=== PATIENT | male | born 1945 | race Caucasian/White ===

== ENCOUNTER 2023-10-03 11:40 | Outpatient (CLI) | payer MEDICARE, BC, OTHER | END 2023-10-03 11:41 | disposition home or self-care (01) | LOC: CSHRAD 11:40 | PROVIDERS: ATTEND Neurological Surgery | DX: Z01.818 Encounter for other preprocedural examination (principal); Z95.0 Presence of cardiac pacemaker | CPT/HCPCS: 71045 ==

== ENCOUNTER 2023-10-06 13:28 | Outpatient (CLI) | payer MEDICARE, BC, OTHER | END 2023-10-06 13:29 | disposition home or self-care (01) | LOC: CSHSPEC 13:28 | PROVIDERS: ATTEND Neurological Surgery | DX: M47.26 Other spondylosis with radiculopathy, lumbar region (principal) | CPT/HCPCS: 72148 ==